=== PATIENT | female | born 1960 | race Caucasian/White ===

== ENCOUNTER 2017-11-24 09:48 | Outpatient (CLI) | payer OTHER ==
--- NOTE | 2017-11-24 12:33 | CT ---
CT HEAD NONCONTRAST: HISTORY: Frontal contusion. Followup. Comparison 08/10/16. FINDINGS: There is no evidence of acute intracranial hemorrhage or infarct on today's exam. Ventricles appear normal in size, shape, and position. NO mass effect or shift of midline structures. Subtle subcutan eous fat stranding at the left frontal scalp. Globes are intact. No depressed skull fracture. Visu alized paranasal sinuses remain well aerated. IMPRESSION: No acute intracranial hemorrhage or other acute intracranial abnormalities are demonstrated on today' s exam. POS: TERE
== END 2017-11-24 09:49 | disposition home or self-care (01) ==
LOC: TBSIIMAG 09:48
PROVIDERS: ATTEND Surgery
DX: S06.5X9A Traumatic subdural hemorrhage with loss of consciousness of unspecified duration, initial encounter (principal); S00.83XA Contusion of other part of head, initial encounter
CPT/HCPCS: 70450